=== PATIENT | male | born 1975 | race Caucasian/White ===

== ENCOUNTER 2016-08-22 16:00 | Emergency (ER) | payer MEDICARE, OTHER ==
[~2016-08-22] VITALS: Wt 70.5 kg
[~2016-08-22 16:00] MED LIST: ALBUTEROL
[2016-08-22 16:06] VITALS: Wt 70.5 kg
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
[2016-08-22] MEDS ORDERED: LORAZEPAM 1 MG TAB PO ONE (17:30)
== END 2016-08-22 17:26 | disposition home or self-care (01) ==
LOC: E/R 16:00
DX: F41.9 Anxiety disorder, unspecified (principal); J45.909 Unspecified asthma, uncomplicated
CPT/HCPCS: Z7502; Z7610; 99283

== ENCOUNTER 2016-08-27 22:36 | Emergency (ER) | payer OTHER ==
[~2016-08-27] VITALS: Ht 175.3 cm; Wt 72.0 kg
[2016-08-27 22:41] VITALS: Ht 175.3 cm; Wt 72.0 kg
[2016-08-28] MEDS ORDERED: LORAZEPAM 0.5 MG TAB PO ONE (01:30)
[2016-08-28 02:34] VITALS: BP 116/70; PULSE 75; RESP 20; TEMP 97.5
--- NOTE | 2016-08-28 02:40 | ERD ---
ER Documentation Chief Complaint Date/Time DATE: 08/28/16 TIME: 02:34 Chief Complaint SI/HI. Cocaine snorted yesterday HPI This 40-year-old male returns to the ER after being present last week for an Ativan prescription. Is currently he feels depressed because of her recent loss. He was worried because he recently had thoughts of harming himself or others. He states that he is not feeling that way right now but does feel fairly anxious. He said he still having trouble filling his prescription for Ativan as well. Denies any physical complaints. ROS All systems reviewed and are negative except as per history of present illness. Medications Home Meds Reported Medications [Albuterol] No Conflict Check 08/13/10 Allergies Allergies: Coded Allergies: risperidone (Verified Allergy, Unknown, 11/06/15) PMhx/Soc History of Surgery: Yes (Appy) Anesthesia Reaction: No Hx Neurological Disorder: No Hx Respiratory Disorders: Yes (Asthma) Hx Cardiac Disorders: No Hx Psychiatric Problems: Yes (Bipolar D/O,Alcoholism) Hx Miscellaneous Medical Probl: No Hx Alcohol Use: Yes (today) Hx Substance Use: Yes (Cocaine today) Hx Tobacco Use: Yes (yes, not daily) Smoking Status: Current some day smoker Physical Exam Vitals Vital Signs Date Time Temp Pulse Resp B/P Pulse Ox O2 Delivery O2 Flow Rate FiO2 08/27/16 22:41 97.5 77 20 114/70 97 Physical Exam Const: [] No distress, listening to music in his head phones. Head: Atraumatic Eyes: Normal Conjunctiva ENT: Normal External Ears, Nose and Mouth. Neck: Full range of motion..~ No meningismus. Resp: Clear to auscultation bilaterally Cardio: Regular rate and rhythm, no murmurs Abd: Soft, non tender, non distended. Normal bowel sounds Ext: No cyanosis, or edema Neur: Awake and alert and oriented 3, no focal deficits Psych: Normal Mood and Affect Results 24 hrs Current Medications Medications (Trade) Dose Ordered Sig/Erin Route PRN Reason Start Time Stop Time Status Last Admin Dose Admin Lorazepam (Ativan) 0.5 mg ONCE ONCE PO 08/28/16 01:30 08/28/16 01:31 DC 08/28/16 01:33 Procedures/MDM This 40-year-old male is likely suffering from adjustment disorder with depressed mood. He is currently saying he is not having suicidal homicidal ideations. He does feel better after he was given Ativan pill in the ER and I gave him time for her to take effect. This point as he has no suicidal some ideations I am going to discharge him with instructions to follow-up with his primary care doctor to see a psychiatrist. He agrees to try to see his doctor within the next day or 2. Also told he should return to the emergency room if he has any thoughts of harming himself or others again and we can give him help. Departure Diagnosis: Primary Impression: Depressed Additional Impression: Anxiety Condition: Stable Patient Instructions: Adjustment Disorder, Anxiety Reaction Referrals: [facility] YOU HAVE RECEIVED A MEDICAL SCREENING EXAM AND THE RESULTS INDICATE THAT YOU DO NOT HAVE A CONDITION THAT REQUIRES URGENT TREATMENT IN THE EMERGENCY DEPARTMENT. FURTHER EVALUATION AND TREATMENT OF YOUR CONDITION CAN WAIT UNTIL YOU ARE SEEN IN YOUR DOCTORS OFFICE WITHIN THE NEXT 1-2 DAYS. IT IS YOUR RESPONSIBILITY TO MAKE AN APPOINTMENT FOR FOLOW-UP CARE. IF YOU HAVE A PRIMARY DOCTOR --you should call your primary doctor and schedule an appointment IF YOU DO NOT HAVE A PRIMARY DOCTOR YOU CAN CALL OUR PHYSICIAN REFERRAL HOTLINE AT IF YOU CAN NOT AFFORD TO SEE A PHYSICIAN YOU CAN CHOSE FROM THE FOLLOWING [facility] [address] [facility]. [facility] [address] [facility]. [facility] [address] [facility] [facility] [address] [facility]. [facility] [address] [facility]. [facility]. [address] Additional Instructions: Call your primary care doctor TOMORROW for an appointment during the next 1-2 days.See the doctor sooner or return here if your condition worsens before your appointment time. NANCY MENDOSA DO Aug 28, 2016 02:39
== END 2016-08-28 02:43 | disposition home or self-care (01) ==
LOC: E/R 22:36
DX: F32.9 Major depressive disorder, single episode, unspecified (principal); F41.9 Anxiety disorder, unspecified; J45.909 Unspecified asthma, uncomplicated; F17.210 Nicotine dependence, cigarettes, uncomplicated
CPT/HCPCS: Z7502; Z7610; 99284